=== PATIENT | female | born 1995 | race Caucasian/White ===

== ENCOUNTER 2017-12-14 13:40 | Emergency (ER) | payer OTHER ==
[~2017-12-14] VITALS: Ht 170.2 cm; Wt 56.7 kg
== END 2017-12-14 19:13 | disposition home or self-care (01) ==
LOC: ER 13:40
DX: O26.892 Other specified pregnancy related conditions, second trimester (principal); J06.9 Acute upper respiratory infection, unspecified; O23.42 Unspecified infection of urinary tract in pregnancy, second trimester; O98.512 Other viral diseases complicating pregnancy, second trimester; J11.1 Influenza due to unidentified influenza virus with other respiratory manifestations; Z34.82 Encounter for supervision of other normal pregnancy, second trimester

== ENCOUNTER 2022-09-14 09:40 | Emergency (ER) | payer OTHER ==
[~2022-09-14] VITALS: Ht 170.2 cm; Wt 80.3 kg
== END 2022-09-14 22:53 | disposition home or self-care (01) ==
LOC: ER 09:40
DX: O03.9 Complete or unspecified spontaneous abortion without complication (principal)

== ENCOUNTER 2023-05-31 09:38 | Outpatient (CLI) | payer OTHER | END 2023-05-31 17:59 | disposition home or self-care (01) | LOC: PRENATAL 09:38 | PROVIDERS: ATTEND Obstetrics & Gynecology Maternal & Fetal Medicine | DX: O35.9XX0 Maternal care for (suspected) fetal abnormality and damage, unspecified, not applicable or unspecified (principal); O35.3XX0 Maternal care for (suspected) damage to fetus from viral disease in mother, not applicable or unspecified; O44.00 Complete placenta previa NOS or without hemorrhage, unspecified trimester; Z3A.20 20 weeks gestation of pregnancy ==

== ENCOUNTER 2023-08-22 08:15 | Outpatient (CLI) | payer OTHER | END 2023-08-22 09:28 | disposition home or self-care (01) | LOC: PRENATAL 08:15 | PROVIDERS: ATTEND Obstetrics & Gynecology Maternal & Fetal Medicine | DX: O26.849 Uterine size-date discrepancy, unspecified trimester (principal); O36.8199 Decreased fetal movements, unspecified trimester, other fetus; Z3A.32 32 weeks gestation of pregnancy ==

== ENCOUNTER 2023-09-15 11:29 | Outpatient (CLI) | payer OTHER ==
[2023-09-15] MEDS ORDERED: PRENATAL CAPLE1 EAC1 PO (15:09)
== END 2023-09-15 16:31 | disposition home or self-care (01) ==
LOC: OBS/DEL 11:29
PROVIDERS: ATTEND Obstetrics & Gynecology
DX: O60.03 Preterm labor without delivery, third trimester (principal); Z3A.36 36 weeks gestation of pregnancy

== ENCOUNTER 2023-09-20 10:16 | Outpatient (CLI) | payer OTHER ==
[~2023-09-20 10:16] MED LIST: PRENATAL CAPLE1 EAC1 PO
== END 2023-09-20 10:17 | disposition home or self-care (01) ==
LOC: PRENATAL 10:16
PROVIDERS: ATTEND Obstetrics & Gynecology Maternal & Fetal Medicine
DX: O36.8199 Decreased fetal movements, unspecified trimester, other fetus (principal); Z3A.36 36 weeks gestation of pregnancy

== ENCOUNTER 2023-10-06 19:12 | Inpatient (IN) | payer OTHER ==
[~2023-10-06] VITALS: Ht 170.2 cm; Wt 92.5 kg
[2023-10-06 19:40] LABS: HEMATOCRIT 34.3 % (36.0-45.00); HEMOGLOBIN 11.5 g/dL (12.0-15.00); MEAN CELL VOLUME 78.6 fL (80.00-100.00); MEAN CORPUSCULAR HEMOGLOBIN 26.3 pg (27.00-32.0); MEAN CORPUSCULAR HGB CONC 33.5 g/dl (32.0-36.0); PH,URINE 6.5 (5.0-8.0); PLATELET COUNT 253 K/uL (150-450); RED BLOOD COUNT 4.36 M/uL (4.00-6.00); URINE APPEARANCE Clear; URINE BILIRRUBIN Negative (NEGATIVE); URINE BLOOD Trace; URINE COLOR Yellow; URINE GLUCOSE Negative (NEGATIVE); URINE LEUKOCYTE Negative; URINE NITRATE Negative; URINE PROTEIN Negative (NEGATIVE); URINE UROBILINOGEN 0.2 E.U./dl
[2023-10-06 19:44] LABS: URINE BACTERIA 137.3 uL (0.0-1933); URINE EPITHELIAL CELLS 7.2 uL (0.0-38.8); URINE RBC 13.6 uL (0.0-20.8); URINE WBC 16.9 uL (0.0-23.2)
[2023-10-06 19:59] LABS: INR 0.97; PARTIAL THROMBOPLASTIN TIME 28.9 SECONDS (22.0-34.0); PROTHROMBIN TIME 10.2 SECONDS (9.0-11.5)
[2023-10-06 20:03] LABS: ALBUMIN 2.8 gm/dL (3.4-5.0); BILIRUBIN TOTAL 0.26 mg/dL (0.3-1.2); CREATININE SERUM 0.81 mg/dL (0.55-1.02); GFR 83.59; GLOBULINA 3.7 G/DL (2.4-3.5); POTASSIUM 4.19 mEq/L (3.5-5.1); TOTAL PROTEIN 6.5 gm/dL (6.4-8.2)
[2023-10-07 06:40] LABS: ABG pCO2 35.6 mmHg (35-45)
[2023-10-07 06:41] LABS: ABG PO2 34.2 mmHg (80-100); BASE EXCESS -3.8 mmol/l; BICARBONATE 20.6 mmol/l (23-25); SaO2 63.6 %; Tco2 21.7 mmol/l; o2 21 %
[2023-10-07 21:55] LABS: HEMATOCRIT 33.1 % (36.0-45.00); HEMOGLOBIN 10.8 g/dL (12.0-15.00); MEAN CELL VOLUME 77.8 fL (80.00-100.00); MEAN CORPUSCULAR HEMOGLOBIN 25.5 pg (27.00-32.0); MEAN CORPUSCULAR HGB CONC 32.8 g/dl (32.0-36.0); PLATELET COUNT 231 K/uL (150-450); RED BLOOD COUNT 4.25 M/uL (4.00-6.00); RED CELL DISTRIBUTION WIDTH 16.1 % (11.5-14.5)
== END 2023-10-09 12:27 | disposition home or self-care (01) | DRG 798 ==
LOC: O/R 19:12 → LDR 19:12 → O/R 10-07 13:38 → OB/GYN 10-07 20:08 → O/R 10-07 20:21 → OB/GYN 10-07 20:37
PROVIDERS: ADMIT Obstetrics & Gynecology; ATTEND Obstetrics & Gynecology
PROC: 3E0P7VZ Introduction of Hormone into Female Reproductive, Via Natural or Artificial Opening (ICD-10-PCS; 2023-10-06)
PROC: 4A1HXCZ Monitoring of Products of Conception, Cardiac Rate, External Approach (ICD-10-PCS; 2023-10-06)
PROC: 3E033VJ Introduction of Other Hormone into Peripheral Vein, Percutaneous Approach (ICD-10-PCS; 2023-10-07)
PROC: 10E0XZZ Delivery of Products of Conception, External Approach (ICD-10-PCS; principal; 2023-10-07 14:00)
PROC: 0UB70ZZ Excision of Bilateral Fallopian Tubes, Open Approach (ICD-10-PCS; 2023-10-08)
DX: O42.12 Full-term premature rupture of membranes, onset of labor more than 24 hours following rupture (principal); Z37.0 Single live birth; Z3A.38 38 weeks gestation of pregnancy; Z20.822 Contact with and (suspected) exposure to COVID-19; Z30.2 Encounter for sterilization